=== PATIENT | male | born 1955 | race Caucasian/White ===

== ENCOUNTER 2022-12-21 22:36 | Emergency (ER) | payer OTHER ==
--- NOTE | 2022-12-21 22:45 | NUR ---
called to triage no answer
--- NOTE | 2022-12-21 23:04 | NUR ---
patient not in waiting room
== END 2022-12-21 23:05 | disposition left against medical advice (07) ==
LOC: ER 22:47
DX: Z53.21 Procedure and treatment not carried out due to patient leaving prior to being seen by health care provider (principal)